=== PATIENT | male | born 2000 | race Caucasian/White ===

== ENCOUNTER 2022-10-19 17:49 | Inpatient (IN) | payer MEDICAID ==
[~2022-10-19] VITALS: Ht 180.3 cm; Wt 54.4 kg
--- NOTE | 2022-10-19 18:30 | NUR ---
RN NOTES RECEIVED PATIENT FROM [facility] ENDORSED BY MONIQUE RO VIA STRETCHER. PATIENT IS AWAKE AND A/O X4. ON ROOM AIR TOLERATING WELL. NO SOB NOTED. NOT IN DISTRESS. WITH COMPLAINTS OF PAIN AT THE RLQ OF THE ABDOMEN AT THE SCALE OF 5/10. COMFORT MEASURES IN PLACED. WEIGHT AND V/S TAKEN. SAFETY MEASURES IN PLACED, CALL LIGHT WITHIN REACH, BED ON LOWEST LOCKED POSITION, SIDE RAILS UP X2. WILL MONITOR.
--- NOTE | 2022-10-19 18:43 | NUR ---
RN NOTE PALOMA FROM OR CALLED THAT PATIENT IS FOR LAPAROSCOPIC APPENDECTOMY POSSIBLE OPEN PROCEDURE. TO SECURE CONSENT.
--- NOTE | 2022-10-19 18:53 | NUR ---
RN NOTE CONSENT SIGNED AND PLACED ON CHART. WILL ENDORSE TO NEXT SHIFT FOR MARIAELENA.
[2022-10-19] MEDS ORDERED: BUPIVACAINE MPF 0.5% W/EPI INJ 30 ML VIAL ONE (18:57)
[2022-10-19] MEDS ORDERED: LIDOCAINE 1% INJ 50 ML MDV IJ ONE (18:58)
--- NOTE | 2022-10-19 19:00 | NUR ---
ADMISSION 22 y/o male Alert Oriented x4. Skin intact. Left AC IV line. Ambulatory. Oriented to room, unit, staff. Patient has no reported home medication.
[2022-10-19 21:40] VITALS: BP 100/55
[2022-10-19] MEDS ORDERED: ONDANSETRON HCL/PF 4 MG/2 ML VIAL IVP PRN (22:00)
[2022-10-19] MEDS ORDERED: ACETAMINOPHEN 325 MG TABLET PO PRN (22:00)
[2022-10-19] MEDS ORDERED: IV NS 0.9% 1,000 ML IV PRN (22:00)
[2022-10-19] MEDS: PANTOPRAZOLE 40 MG VIAL IV SCH (22:24)
--- NOTE | 2022-10-20 00:04 | NUR ---
Patient off unit to surgery.
[2022-10-20] MEDS ORDERED: ROCURONIUM BROMIDE 50 MG/5 ML ONE (01:18)
[2022-10-20] MEDS ORDERED: FENTANYL PF 100MCG/2ML AMPUL ONE (01:18)
[2022-10-20 04:13] VITALS: BP 131/60
[2022-10-20 04:26] VITALS: BP 116/82
[2022-10-20] MEDS: MORPHINE SULFATE INJ 2 MG/ML DISP.SYRIN IV PRN ×3 (04:29→14:43)
--- NOTE | 2022-10-20 04:30 | NUR ---
S/P PROCEDURE APPENDECTOMY s/p lap appendectomy, abdomen incision dressing clean and dry, no bleeding. Chart reviewed by ROYAL Craven with new orders for IV antibiotic placed.
[2022-10-20] MEDS ORDERED: PIPERACILLIN /TAZOBACTAM 3.375 G VIAL IV ONE (05:31)
[2022-10-20] MEDS: GABAPENTIN 100 MG CAPSULE PO SCH ×2 (05:39→12:13)
[2022-10-20 05:45] VITALS: BP 102/66
[2022-10-20] MEDS ORDERED: PIPERACILLIN /TAZOBACTAM 3.375 G in IV D5W 50 ML IV SCH ×2 (06:00→12:00)
--- NOTE | 2022-10-20 06:10 | NUR ---
END OF SHIFT REPORT Patient in bed, Alert Oriented x4. Abdomen incision clean and dry, no bleeding. Pain managed with IV Morphine. IVF infusing, on IV abx. Afebrile. No c/o N/V. On Clear liquids. No stool yet, no flatus. Encouraged ambulation as tolerated. Will endorse to oncoming RN.
[2022-10-20 06:43] LABS: BASOPHILS % (AUTO) 0.1 % (0.0-2.0); HEMATOCRIT 40 % (39-51); HEMOGLOBIN 13.2 g/dL (13.5-17.5); LYMPHOCYTES # (AUTO) 0.2 K/uL (0.8-4.8); LYMPHOCYTES % (AUTO) 2.2 % (20.0-44.0); MEAN CORPUSCULAR HGB CONC 33 g/dl (31.0-36.0); MEAN CORPUSCULAR VOLUME 85 fL (80-96); MONOCYTES # (AUTO) 0.5 K/uL (0.1-1.30); MONOCYTES % (AUTO) 4.8 % (2.0-12.0); NEUTROPHILS # (AUTO) 8.9 K/uL (1.8-8.9); NEUTROPHILS % (AUTO) 92.9 % (43.0-81.0); PLATELET COUNT (AUTO) 133 K/uL (150-450); RED BLOOD CELL COUNT(AUTO) 4.65 MIL/uL (4.5-6.0); WHITE BLOOD COUNT (AUTO) 9.6 K/uL (4.3-11.0)
[2022-10-20 07:00] VITALS: BP 99/62
--- NOTE | 2022-10-20 07:00 | NUR ---
MS RN OPENING NOTE PATIENT LAYING IN BED, A/O X3, ABLE TO MAKE NEEDS KNOWN, TOLERATING WELL ON ROOM AIR WITH NO S/S RESPIRATORY DISTRESS. NO COMPLAINTS OF PAIN OR DISCOMFORT AT THIS TIME. L AC # 18 IV CLEAN, INTACT, AND INFUSING NS @ 75 ML/HR. INCISION ON ABDOMEN WITH DRESSING C/D/I. SAFETY MEASURES IN PLACE: BED IN LOWEST LOCKED POSITION, SIDE RAILS UP X 2, CALL LIGHT WITHIN REACH. WILL CONTINUE TO MONITOR.
[2022-10-20 07:05] LABS: CALCIUM, SERUM 7.8 mg/dL (8.5-10.1); CREATININE 1.1 mg/dL (0.6-1.3); MAGNESIUM 1.7 mg/dL (1.8-2.4); PHOSPHORUS 1.3 mg/dL (2.5-4.9); POTASSIUM 3.3 mmol/L (3.5-5.1)
[2022-10-20] MEDS: PANTOPRAZOLE 40 MG VIAL IV SCH (08:45)
[2022-10-20] MEDS ORDERED: CELECOXIB 100 MG CAPSULE PO SCH (09:00)
[2022-10-20] MEDS ORDERED: MAGNESIUM OXIDE 400 MG TABLET PO ONE (10:30)
[2022-10-20] MEDS ORDERED: POTASSIUM CHLORIDE 20 MEQ TAB.PRT.SR PO SCH (11:00)
[2022-10-20] MEDS ORDERED: PIPERACILLIN /TAZOBACTAM 3.375 G in IV D5W 100 ML IV SCH (14:00)
[2022-10-20] MEDS ORDERED: K PHOS NEUTRAL 250 MG TABLET PO ONE (15:30)
--- NOTE | 2022-10-20 18:19 | NUR ---
MS CADDY NOTE PATIENT MADE AWARE OF MD DISCHARGE ORDERS AND INSTRUCTIONS. PATIENT VERBALIZED UNDERSTANDING OF MD DISCHARGE INSTRUCTIONS AND SIGNED DISCHARGE INSTRUCTIONS SHEET. PATIENT ALSO VERBALIZED POSSESSION OF ALL BELONGINGS AND SIGNED BELONGINGS LIST. IV LINE AND ID BAND REMOVED. ALL PAPERWORK PROVIDED TO PATIENT. PATIENT EXITED UNIT VIA WHEELCHAIR ACCOMPANIED BY REGISTERED NURSE HH CASE MANAGER AND HIS MOTHER. PATIENT STABLE AT TIME OF DISCHARGE.
== END 2022-10-20 18:00 | disposition home or self-care (01) | DRG 234 ==
LOC: MED 17:49
PROVIDERS: ADMIT Nurse Practitioner Acute Care
PROC: 0DTJ4ZZ Resection of Appendix, Percutaneous Endoscopic Approach (ICD-10-PCS; principal; 2022-10-20)
DX: K35.80 Unspecified acute appendicitis (principal)
CPT/HCPCS: 36415; 80048-TC; 83735-TC; 84100-TC; 85025-TC; 87081-TC; C9113; G0378; J0330; J0690; J1100; J2270; J2405; J2543; J2704; J3010; J3490; J7030; J7060